=== PATIENT | male | born 1995 ===

== ENCOUNTER 2020-01-27 09:29 | Emergency (ER) | payer SELFPAY ==
[~2020-01-27] VITALS: Ht 170.1 cm; Wt 77.9 kg
[2020-01-27] MEDS ORDERED: AMOX875T2 PO (10:36)
--- NOTE | 2020-01-27 10:37 | ED EENT ---
History of Present Illness General Chief Complaint: Oral/Throat Problems Stated Complaint: SORE THROAT Nursing Triage Note: AMB TO ROOM C/O SORETHROAT X 4DAYS DENISES SOA OR TEMP. Source: patient History of Present Illness Date Seen by Provider: Jan 27, 2020 Time Seen by Provider: 09:50 Initial Comments PT ARRIVES VIA POV FROM HOME WITH GIRLFRIEND, WHO IS ALSO BEING SEEN FOR SAME C/O SORE THROAT X 4 DAYS NO FEVER NO COUGH OR CONGESTION NO SHORTNESS OF BREATH NO OTHER SYMPTOMS OF ANY KIND NO KNOWN EXPOSURE TO STREP, FLU OR CORONAVIRUS. 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 Allergies and Home Medications Home Medications Amoxicillin 875 Mg Tablet, 875 MG PO BID Prescribed by: BRENDAN JAMES on 01/27/20 1036 Patient Home Medication List Home Medication List Reviewed: Yes Review of Systems Review of Systems Constitutional: no symptoms reported; No chills, No diaphoresis, No dizziness, No fever, No malaise, No weakness Eyes: No Symptoms Reported Ears: No Symptoms Reported Nose: no symptoms reported Mouth: no symptoms reported Throat: see HPI, pain; denies neck stiffness, denies hoarse, denies aphonia, denies muffled, denies painful swallowing, denies difficulty with fluids Respiratory: no symptoms reported; No cough, No short of breath, No wheezing Cardiovascular: no symptoms reported Gastrointestinal: no symptoms reported Musculoskeletal: no symptoms reported Skin: no symptoms reported Neurological: No Symptoms Reported; Denies Headache Hematologic/Lymphatic: No Symptoms Reported Immunological/Allergic: no symptoms reported Past Fuptzae-Foumui-Sjyfgc Hx Past Med/Social Hx: Reviewed and Corrections made Patient Social History Alcohol Use: Denies Use Recreational Drug Use: Yes (THC) Drug of Choice: THC Smoking Status: Current Everyday Smoker ( PPD) Type Used: Cigarettes (1 PPD) Recent Foreign Travel: No Contact w/Someone Who Travel: No Recent Infectious Disease Expo: No Seasonal Allergies Seasonal Allergies: No Past Medical History Surgeries: No Respiratory: No Cardiac: No Neurological: No Genitourinary: No Gastrointestinal: No Musculoskeletal: No Endocrine: No HEENT: No Cancer: No Psychosocial: No Integumentary: No Blood Disorders: No Physical Exam Vital Signs Vital Signs - First Documented 01/27/20 01/27/20 09:35 10:56 Temp 36.8 Pulse 89 Resp 18 B/P (MAP) 148/106 (120) Pulse Ox 98 O2 Delivery Room Air Height, Weight, BMI Height: '" Weight: lbs. oz. kg; 26.00 BMI Method: General Appearance: WD/WN, no apparent distress, other (TEXTING ON PHONE. DOES NOT APPEAR TO BE ILL OR IN ANY DISCOMFORT OR DISTRESS. EXTREMELY MALODOROUS--SMELLS OF SKUNK AND CAT URINE. 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, no motor/sensory deficits, alert, normal mood/affect, oriented x 3 Skin: normal color, warm/dry Progress/Results/Core Measures Results/Orders Lab Results Laboratory Tests Test 01/27/20 10:00 Range/Units Group A Streptococcus Screen NEGATIVE NEGATIVE Micro Results Microbiology 01/27/20 Influenza Types A,B Antigen ([facility]) - Final, Complete My Orders Orders - BRENDAN JAMES DO Rapid Strep A Screen (01/27/20 09:51) Influenza A And B Antigens (01/27/20 09:51) Vital Signs/I&O 01/27/20 01/27/20 09:35 10:56 Temp 36.8 Pulse 89 73 Resp 18 18 B/P (MAP) 148/106 (120) 135/90 Pulse Ox 98 98 O2 Delivery Room Air Blood Pressure Mean: 120 Departure Impression Primary Impression: Pharyngitis Additional Impression: Bilateral otitis media Disposition: 01 HOME, SELF-CARE Condition: Stable Departure-Patient Inst. Referrals: NO,LOCAL PHYSICIAN (PCP/Family) Primary Care Physician Patient Instructions: Ear Infections (Otitis Media) (DC), Sore Throat, Adult (DC) Add. Discharge Instructions: TYLENOL AND MOTRIN FOR PAIN OR FEVER LOTS OF CLEAR LIQUIDS FOLLOW UP WITH DR OF CHOICE IN 3-5 DAYS IF NO BETTER All discharge instructions reviewed with patient and/or family. Voiced understanding. Scripts Amoxicillin (Amoxicillin) 875 Mg Tablet 875 MG PO BID, #20 TAB Prov: BRENDAN JAMES DO 01/27/20 Work/School Note: Work Release Form Date Seen in the Emergency Department: Jan 27, 2020 BRENDAN JAMES DO Jan 27, 2020 10:37
[2020-01-27 10:56] VITALS: BP 135/90
== END 2020-01-27 11:02 | disposition home or self-care (01) ==
LOC: ER 09:32
DX: J02.9 Acute pharyngitis, unspecified (principal); H66.93 Otitis media, unspecified, bilateral; F17.210 Nicotine dependence, cigarettes, uncomplicated
CPT/HCPCS: 87430; 87804